=== PATIENT | male | born 1975 | race Caucasian/White ===

== ENCOUNTER → 2017-11-18 | Outpatient (CLI) | payer BC ==
--- NOTE | 2017-11-18 09:06 | RAD ---
Examination: Ultrasound right chest HISTORY: History of fall right chest lump COMPARISON: None available FINDINGS: There is a 1.2 cm hyperechogenic lesion identified in the subcutaneous region of the right chest at the site of palpability without significant vascular flow within probably a lipoma. There is another area 7 mm hypoechogenicity identified just inferior to the palpable lump likely a small lipoma. IMPRESSION: 1. 2 hyperechogenic lesions identified in the subcutaneous region of the right lateral chest wall the largest measuring 1.2 cm likely lipomas. Electronically signed by: Ventura Zimmerman MD (11/18/2017 9:02 AM) [id number]
== END | disposition home or self-care (01) ==
LOC: US 07:49
PROVIDERS: ATTEND Physician Assistant
DX: R22.2 Localized swelling, mass and lump, trunk (principal); R05 Cough; R07.89 Other chest pain; J02.8 Acute pharyngitis due to other specified organisms; J01.01 Acute recurrent maxillary sinusitis; E78.4 Other hyperlipidemia; E78.1 Pure hyperglyceridemia; Z91.81 History of falling
CPT/HCPCS: 76881

== ENCOUNTER → 2018-02-23 | Outpatient (CLI) | payer BC ==
[~2018-02-23] MED LIST: IOHEXOL 240 MG/ML 50ML VIAL. ONE; IOHEXOL 300 MG/ML 75 ML VIAL. IV ONE
--- NOTE | 2018-02-23 09:42 | RAD ---
PQRS Compliance Statement: One or more of the following individualized dose reduction techniques were utilized for this examination: 1. Automated exposure control 2. Adjustment of the mA and/or kV according to patient size 3. Use of iterative reconstruction technique CT abdomen with contrast February 23, 2018 INDICATION: Left upper quadrant pain for one month with indigestion. COMPARISON: None available TECHNIQUE: Multiple axial CT images of the abdomen were obtained after the intravenous administration of 75 cc Isovue-[id number]. Oral contrast was administered. Coronal and sagittal reformats are provided. FINDINGS: Lung bases are clear. Heart size is within normal limits. Hypoattenuation of the hepatic parenchyma suggestive of hepatic steatosis. There is a 9 mm hypoattenuating lesion in segment VIII of the right hepatic lobe which measures higher than that of simple fluid. This finding is indeterminate and further characterization with MRI may be of benefit if clinically warranted. The spleen is nonenlarged. Adrenal glands are normal in appearance. Pancreas is normal in appearance. Gallbladder is present without adjacent inflammation. Abdominal aorta is normal in course and caliber. There are no pathologically enlarged lymph nodes in abdomen. There is no free fluid or free intraperitoneal air. Oral contrast was administered. Opacified portions of the stomach, small and large bowel are normal with normal mucosal fold pattern. Normal appendix is partially profiled. The kidneys enhance symmetrically. There is no suspicious renal mass. There is no hydronephrosis. Simple appearing cyst is identified in the midpole the right kidney measuring 11 mm. No suspicious osseous lesion is identified. IMPRESSION: 1. There is a 9 mm hypoattenuating lesion in segment VIII of the right hepatic lobe. Findings are indeterminate and further characterization with MRI may be of benefit. In the absence of underlying malignancy or hepatic inflammation, findings are most favored represent benign etiology such as a hemangioma. 2. Hypoattenuation of the hepatic parenchyma suggestive of hepatic steatosis. 3. No evidence for bowel obstruction or inflammation. Electronically signed by: Candi Michael MD (02/23/2018 9:38 AM) [id number]
== END | disposition home or self-care (01) ==
LOC: CT 08:12
PROVIDERS: ATTEND Nurse Practitioner Adult Health
DX: K76.89 Other specified diseases of liver (principal)
CPT/HCPCS: 74160; Q9966; Q9967